=== PATIENT | female | born 1995 | race Two or more races ===

== ENCOUNTER 2023-12-01 11:25 | Emergency (ER) | payer MEDICAID ==
[~2023-12-01] VITALS: Ht 157.5 cm; Wt 82.0 kg
[2023-12-01 11:33] VITALS: BP 122/86; PULSE 108; RESP 18; TEMP 98.4; O2SAT 100
== END 2023-12-01 18:35 | disposition left against medical advice (07) ==
LOC: ER 11:25
DX: R10.2 Pelvic and perineal pain (principal); Z88.5 Allergy status to narcotic agent
CPT/HCPCS: 81025; 99282